=== PATIENT | female | born 1960 | race Caucasian/White ===

== ENCOUNTER → 2016-09-09 | Outpatient (CLI) | payer BC ==
[~2016-09-09] MED LIST: ACP20 PO; AGM875 PO; ALL180 PO; BNC/20125 PO; Biotin PO; CHOL100010 PO; CRS10 PO; DICL-201 PO; ESCI1TAB10 PO; ESTROGEL TOP; FLNIN NAE; FLX10 PO; HYDC25 PO; LBT/200 PO; LEVO50TA6 PO; LORAZEPAM PO; MAGNESIUM PO; SUMA6KIT IM; SYN50 PO; VITAMIN B12 PO; VTMB12UNK PO; ZNTT/150 PO
[2016-09-09 13:52] LABS: URINE APPEARANCE CLEAR (CLEAR); URINE BILIRUBIN NEG (NEG); URINE COLOR YELLOW; URINE NITRITE NEG (NEG); UROBILINOGEN NEG (NEG)
[2016-09-09 14:00] LABS: MANUAL MICROSCOPIC REQUIRED? NO; REVIEW REQ? NO
== END | disposition home or self-care (01) ==
LOC: C.LABSPEC 13:26
PROVIDERS: ATTEND Physician Assistant
DX: R82.90 Unspecified abnormal findings in urine (principal)

== ENCOUNTER → 2016-12-23 | Day surgery (SDC) | payer BC ==
[2016-12-12 14:52] VITALS: BMI 27.0
[~2016-12-23] VITALS: Ht 157.5 cm; Wt 68.2 kg
[~2016-12-23] MED LIST changes: -ACP20 PO; -AGM875 PO; -Biotin PO; -DICL-201 PO; -HYDC25 PO; -LBT/200 PO; +LIDOCAINE HCL 2% 2 ML VIAL (20MG/ML) ONE; +PROPOFOL IV EMULSION 10 MG/ML 20 ML VIAL IV ONE; -SYN50 PO; -VTMB12UNK PO
[2016-12-23 14:30] VITALS: Ht 157.5 cm; Wt 68.2 kg
--- NOTE | 2016-12-23 14:34 | Endo History and Physical ---
History & Physical Date of Service: Dec 23, 2016. Chief Complaint: Heartburn, screening Referring Physician: Avila Saleh History of Present Illness For EGD and colonoscopy Past Surgical History Hx Cardiac Surgery: No Hx Internal Defibrillator: No Hx Abdominal Surgery: Yes (HYSTERECTOMY BSO) Hx of Implantable Prosthesis: No Hx Post-Op Nausea and Vomiting: No Hx Cancer Surgery: No Hx Thoracic Surgery: No Hx Orthopedic: No Hx Urinary Tract Surgery: No Family History None Social History Smoking Status: Never Smoker Hx Substance Use: No Hx Alcohol Use: Yes (1 X A WEEK) Allergies Coded Allergies: Fentanyl (Verified Allergy, Unknown, SEVERE MIGRAINES,HIGH BP-NEEDED TO BE TREATED, 12/23/16) Iodinated Contrast Media (Verified Allergy, Unknown, STOPPED BREATHING, 12/12/16) Latex (Verified Allergy, Unknown, hives, 12/12/16) Midazolam (Verified Allergy, Unknown, SEVERE MIGRAINES,HIGH BP-NEEDED TO NE TREATED, 12/23/16) Current Medications Reported Home Medications Medications Dose Route/Sig Max Daily Dose Days Date Category Dose Instructions Benicar Hct 20/12.5 (Olmesartan/HCTZ) Tab 1 Tab PO QPM 12/12/16 Reported [Magnesium] 1 Tab PO QPM 12/12/16 Reported Lexapro (Escitalopram Oxalate) 20 Mg Tab 20 Mg PO QAM 12/12/16 Reported Zantac (Ranitidine HCl) 150 Mg Tab 150 Mg PO BID 12/12/16 Reported Levothyroxine Sodium 50 Mcg Tab 1 Tab PO HS 90 12/12/16 Reported [Vitamin B12] 1 Tab PO QAM 12/12/16 Reported [Lorazepam] 1 Tab PO PRN 12/12/16 Reported Flonase Nasal [place] * (Fluticasone Propionate) Inha 2 Sprays AMY DAILY PRN 10/02/11 Reported Flexeril * (Cyclobenzaprine HCl) 10 Mg Tab 10 Mg PO BID PRN 10/02/11 Reported NEEDED [Estrogel] 1 Appln TOP 3XWEEK 10/02/11 Reported APPLY TO ENTIRE AREA OF INSIDE AND OUTSIDE ARM FROM WRIST TO SHOULDER ONCE DAILY. Crestor * (Rosuvastatin Calcium) 5 Mg Tab 5 Mg PO QPM 10/02/11 Reported Vitamin D (Cholecalciferol) 1,000 Inter.unit Tab 1,000 Inter.unit PO QAM 10/02/11 Reported Imitrex Statdose (Sumatriptan Succinate) 6 Mg/0.5 Ml Inj 1 Inj IM PRN/UD 10/02/11 Reported Estrella * (Fexofenadine HCl) 180 Mg Tab 180 Mg PO PRN 03/17/08 Reported Vital Signs Weight (Kilograms): 68.18 Height (Feet): 5 Height (Inches): 2 Physical Exam General Appearance: WD/WN Respiratory/Chest: Respiratory effort: no dyspnea Cardiovascular: Heart Auscultation: RRR Abdomen: Inspection & Palpation: soft Assessment and Plan Heartburn and screening for EGD and colonoscopy
--- NOTE | 2016-12-23 15:27 | Discharge Instructions ---
Endoscopy Patient Instructions Date / Procedure(s) Performed Dec 23, 2016. Colonoscopy, EGD Allergy Information Coded Allergies: Fentanyl (Verified Allergy, Unknown, SEVERE MIGRAINES,HIGH BP-NEEDED TO BE TREATED, 12/23/16) Iodinated Contrast Media (Verified Allergy, Unknown, STOPPED BREATHING, 12/12/16) Latex (Verified Allergy, Unknown, hives, 12/12/16) Midazolam (Verified Allergy, Unknown, SEVERE MIGRAINES,HIGH BP-NEEDED TO NE TREATED, 12/23/16) Discharge Date / Findings Dec 23, 2016. Normal EGD and colonoscopy Medication Instructions Restart Stopped Medication(s): resume meds Reported Home Medications Medications Dose Route/Sig Max Daily Dose Days Date Category Dose Instructions Benicar Hct 20/12.5 (Olmesartan/HCTZ) Tab 1 Tab PO QPM 12/12/16 Reported [Magnesium] 1 Tab PO QPM 12/12/16 Reported Lexapro (Escitalopram Oxalate) 20 Mg Tab 20 Mg PO QAM 12/12/16 Reported Zantac (Ranitidine HCl) 150 Mg Tab 150 Mg PO BID 12/12/16 Reported Levothyroxine Sodium 50 Mcg Tab 1 Tab PO HS 90 12/12/16 Reported [Vitamin B12] 1 Tab PO QAM 12/12/16 Reported [Lorazepam] 1 Tab PO PRN 12/12/16 Reported Flonase Nasal [place] * (Fluticasone Propionate) Inha 2 Sprays AMY DAILY PRN 10/02/11 Reported Flexeril * (Cyclobenzaprine HCl) 10 Mg Tab 10 Mg PO BID PRN 10/02/11 Reported NEEDED [Estrogel] 1 Appln TOP 3XWEEK 10/02/11 Reported APPLY TO ENTIRE AREA OF INSIDE AND OUTSIDE ARM FROM WRIST TO SHOULDER ONCE DAILY. Crestor * (Rosuvastatin Calcium) 5 Mg Tab 5 Mg PO QPM 10/02/11 Reported Vitamin D (Cholecalciferol) 1,000 Inter.unit Tab 1,000 Inter.unit PO QAM 10/02/11 Reported Imitrex Statdose (Sumatriptan Succinate) 6 Mg/0.5 Ml Inj 1 Inj IM PRN/UD 10/02/11 Reported Estrella * (Fexofenadine HCl) 180 Mg Tab 180 Mg PO PRN 03/17/08 Reported Provider Instructions Activity Restrictions - No exercising or heavy lifting for 24 hours. - Do not drink alcohol the day of the procedure. - Do not drive a car or operate machinery until the day after the procedure. - Do not make any important decisions or sign important papers in 24 hours after the procedure. Following Day: - Return to full activity which may include returning to work/school. Diet Start your diet with liquids and light foods (jello, soup, juice, toast). Then eat your usual diet if not nauseated. Treatment For Common After Affects For mild abdominal pain, bloating, or excessive gas: - Rest - Eat lightly - Lie on right side Follow-Up Information Follow-up with as scheduled Anesthesia Information What You Should Know You have had a procedure that required some medicine to reduce anxiety and discomfort. This treatment is called moderate sedation. After receiving the treatment, you may be sleepy, but you will be able to breathe on your own. The effects of the treatment may last for several hours. Follow these instructions along with Activity/Diet recommendations noted above: * Do NOT do anything where dizziness or clumsiness would be dangerous. * Rest quietly at home today, then you can be up and about tomorrow. * Have a responsible person stay with you the rest of today. * You may have had an I.V. today. If so, you may take the dressing off later today. Recommendations Call your doctor if: * Trouble breathing * Continuous vomiting for more than 24 hours * Temperature above 101 degrees * Severe abdominal pain or bloating * Pain not relieved by pain medicine ordered * There is increased drainage or redness from any incision * A large amount of rectal bleeding greater than 2-3 tablespoons. (If you had a polyp/s removed or have hemorrhoids, a small amount of blood - from the rectum is to be expected.) * You have any unanswered questions or concerns. IN THE EVENT OF A SERIOUS EMERGENCY, GO TO THE NEAREST EMERGENCY ROOM Your discharge instructions were prepared by provider Serg Carmona. Patient Instructions Signature Page Daiana Gutierres Patient (or Guardian) Signature/Date: I have read and understand the instructions given to me by my caregivers. Caregiver/RN/Doctor Signature/Date: The above-named patient and/or guardian has received patient instructions on this date. + Original Patient Signature Page (only) stays with chart. Please make copy for patient.
--- NOTE | 2016-12-23 15:46 | Anesthesiology Progress Note ---
Anesthesia Post Op Note Date & Time Dec 23, 2016 at 15:46 Vital Signs Pain Intensity: 0 Vital Signs Past 12 Hours Date Time Temp Pulse Resp B/P (MAP) Pulse Ox O2 Delivery O2 Flow Rate FiO2 12/23/16 15:33 80 20 107/73 (84) 99 Room Air 12/23/16 14:45 36.6 82 20 110/77 (88) 99 Room Air Notes Mental Status: alert / awake / arousable, participated in evaluation Pt Amnestic to Procedure: Yes Nausea / Vomiting: adequately controlled Pain: adequately controlled Airway Patency, RR, SpO2: stable & adequate BP & HR: stable & adequate Hydration State: stable & adequate Anesthetic Complications: no major complications apparent
[2016-12-23 16:14] VITALS: BP 108/65; PULSE 76; TEMP 36.6; O2SAT 96
== END | disposition home or self-care (01) ==
LOC: C.GI 14:04
PROVIDERS: ATTEND Internal Medicine Gastroenterology
DX: Z12.11 Encounter for screening for malignant neoplasm of colon (principal); Z90.710 Acquired absence of both cervix and uterus; Z90.722 Acquired absence of ovaries, bilateral; Z90.79 Acquired absence of other genital organ(s)
CPT/HCPCS: 43235; G0121

== ENCOUNTER → 2017-03-19 | Outpatient (CLI) | payer BC ==
[~2017-03-19] MED LIST changes: -LIDOCAINE HCL 2% 2 ML VIAL (20MG/ML) ONE; -PROPOFOL IV EMULSION 10 MG/ML 20 ML VIAL IV ONE
--- NOTE | 2017-03-21 14:11 | MAMMOGRAPHY REPORT ---
BILATERAL DIGITAL SCREENING MAMMOGRAM TOMOSYNTHESIS WITH CAD: 03/19/2017 CLINICAL HISTORY: Routine screening. TECHNIQUE: Breast tomosynthesis in addition to standard 2D mammography was performed. Current study was also evaluated with a Computer Aided Detection (CAD) system. COMPARISON: Comparison is made to exams dated: 07/01/2014 mammogram, 06/28/2013 mammogram, 03/30/[address] [facility] - [facility], 03/22/2009, 09/11/2006, and 09/11/2006. BREAST COMPOSITION: The tissue of both breasts is heterogeneously dense, which may obscure small mas ses. FINDINGS: There are new loosely grouped calcifications in the right upper outer quadrant, for which spot magnification views are recommended for further evaluation. A few circumscribed round fat densi ty masses are seen within the region of the calcifications on the tomosynthesis images consistent wit h oil cysts, suggesting that the calcifications may represent dystrophic calcifications from fat necr osis. The remainder of both breasts are stable compared to prior exams, without suspicious masses, calcific ations, or areas of architectural distortion noted. IMPRESSION: ACR BI-RADS CATEGORY 0: INCOMPLETE EVALUATION: NEED ADDITIONAL IMAGING EVALUATION Right upper outer quadrant calcifications, for which additional imaging evaluation is recommended. T he patient will be called to schedule an appointment. Approximately 10% of breast cancers are not detected with mammography. A negative mammographic report should not delay biopsy if a clinically suggestive mass is present. Suzanne Samuel M.D. ah/:03/20/2017 16:41:19 Sourcing Specialist: Ricardo PERES(Cedric)(M), [facility] letter sent: Addl Imaging 0 BI-RADS Code: ACR BI-RADS Category 0: Incomplete Evaluation: Need Additional Imaging Evaluation
== END | disposition home or self-care (01) ==
LOC: C.MAMM 17:24
PROVIDERS: ATTEND Family Medicine
DX: Z12.31 Encounter for screening mammogram for malignant neoplasm of breast (principal); R92.0 Mammographic microcalcification found on diagnostic imaging of breast

== ENCOUNTER → 2017-04-03 | Outpatient (CLI) | payer BC ==
--- NOTE | 2017-04-03 14:32 | MAMMOGRAPHY REPORT ---
UNILATERAL RIGHT DIGITAL DIAGNOSTIC MAMMOGRAM: 04/03/2017 CLINICAL HISTORY: Callback from screening mammogram for right breast calcifications. TECHNIQUE: Spot magnification right cc and ML views were obtained. COMPARISON: Comparison is made to exams dated: 03/19/2017 mammogram, 07/01/2014 mammogram, 06/28/2013 mammogram, 03/30/2009 aspiration - [facility], 09/11/2006, and 09/11/2006. BREAST COMPOSITION: The tissue of the right breast is heterogeneously dense, which may obscure small masses. FINDINGS: Spot magnification views of the right breast demonstrate loosely grouped calcifications in the right upper outer quadrant, some of which are coarse and some of which are round and punctate. The total extent of the calcifications measures approximately 4.7 cm. In the region of the calcifica tions there are a few small round circumscribed fat density masses consistent with oil cysts, best se en on the tomosynthesis images from the screening mammogram. Given the presence of oil cysts in this region and given the coarse nature of the calcifications, the calcifications are probably benign and likely represent evolving dystrophic calcifications from fat necrosis. The patient denies any known trauma to this region. IMPRESSION: ACR-BI-RADS CATEGORY 3: PROBABLY BENIGN Loosely grouped calcifications in the right upper outer quadrant are associated with small benign oil cysts and are probably benign and likely represent evolving dystrophic calcifications from fat necro sis. Recommend follow-up diagnostic tomosynthesis mammograms of the right breast in 6 months to reev aluate. The patient has been verbally notified of the results. Approximately 10% of breast cancers are not detected with mammography. A negative mammographic report should not delay biopsy if a clinically suggestive mass is present. Suzanne Samuel M.D. /:04/03/2017 09:27:53 Claims Collector: Yun STANTON)(Tana), [facility] letter sent: Follow Up Recommended 3 BI-RADS Code: ACR-BI-RADS Category 3: Probably Benign
== END | disposition home or self-care (01) ==
LOC: C.MAMM 08:39
PROVIDERS: ATTEND Family Medicine
DX: R92.1 Mammographic calcification found on diagnostic imaging of breast (principal)

== ENCOUNTER → 2017-10-21 | Outpatient (CLI) | payer OTHER ==
[~2017-10-21] MED LIST changes: +RANI150T85 PO; -ZNTT/150 PO
--- NOTE | 2017-10-21 09:22 | DIAGNOSTIC IMAGING REPORT ---
ABDOMINAL ULTRASOUND COMPLETE HISTORY: CONSTIPATION, ABDOMINAL DISTENSION. COMPARISON: Abdomen CT 03/24/2015. FINDINGS: Pancreas: The pancreatic head and tail are obscured by overlying bowel gas. The remaining portions of the pancreas are within normal limits. Liver: The liver is echogenic consistent with fatty change. Gallbladder: No gallbladder wall thickening. No gallstones. CBD: 4 mm. Kidneys: No hydronephrosis. Spleen: Normal in size measuring 10.8 cm in length. Aorta: Normal in caliber. IVC: Patent. IMPRESSION: 1. Hepatic steatosis. 2. Normal gallbladder. No gallstones. Electronically signed by: Bennie Agudelo M.D. 10/21/2017 9:20 AM Dictated Date/Time: 10/21/2017 9:18 AM
== END | disposition home or self-care (01) ==
LOC: C.ULTR 07:40
PROVIDERS: ATTEND Internal Medicine Gastroenterology
DX: K59.00 Constipation, unspecified (principal); R14.0 Abdominal distension (gaseous); K76.0 Fatty (change of) liver, not elsewhere classified

== ENCOUNTER → 2018-01-05 | Outpatient (CLI) | payer OTHER | END | disposition home or self-care (01) | LOC: C.LAB 17:24 | PROVIDERS: ATTEND Physician Assistant | DX: E03.9 Hypothyroidism, unspecified (principal) ==